=== PATIENT | male | born 1995 | race Caucasian/White ===

== ENCOUNTER 2019-08-24 12:10 | Emergency (ER) | payer SELFPAY ==
[2019-08-24 13:33] VITALS: BP 120/52
--- NOTE | 2019-08-24 13:38 | ER Document Report ---
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 He states he ate some [place] food that night and shortly after began vomiting. States that he has had some constipation but no diarrhea. He admits to ongoing vomiting throughout the next couple days. He did have some dry heaving this morning but states he was able to keep down some dry cereal. He denies any specific abdominal pain or fevers. No chills or night sweats. Denies any recent travel or known sick contacts. States he just generally feels weak. I have treated and performed a rapid initial assessment of this patient. A comprehensive ED assessment and evaluation of the patient, analysis of test results and completion of medical decision making process will be conducted by additional ED providers. PHYSICAL EXAMINATION: GENERAL: Well-appearing, well-nourished and in no acute distress. A&Ox4. Answers questions appropriately. Abdomen: Nontender - Related Data Allergies/Adverse Reactions: No Known Allergies Allergy (Unverified 08/24/19 13:33) Physical Exam - Vital signs Vitals: Temp Pulse Resp BP Pulse Ox 98.0 F 67 16 120/52 L 99 08/24/19 13:32 08/24/19 13:32 08/24/19 13:32 08/24/19 13:32 08/24/19 13:32 Course - Vital Signs Vital signs: Temp Pulse Resp BP Pulse Ox 98.0 F 67 16 120/52 L 99 08/24/19 13:32 08/24/19 13:32 08/24/19 13:32 08/24/19 13:32 08/24/19 13:32
[2019-08-24] MEDS ORDERED: ONDANSETRON HCL INJ/PF 4 MG/2 ML SDV IV ONE (13:39)
[2019-08-24] MEDS ORDERED: NORMAL SALINE 1000 ML 1,000 ML IV ONE (13:39)
[2019-08-24 15:06] LABS: APPEARANCE,URINE CLEAR; BILIRUBIN,URINE NEGATIVE (NEGATIVE); COLOR,URINE YELLOW; GLUCOSE, URINE NEGATIVE (NEGATIVE); KETONES,URINE NEGATIVE (NEGATIVE); PROTEIN,URINE NEGATIVE (NEGATIVE); UROBILINOGEN,URINE NEGATIVE mg/dL (<2.0)
[2019-08-24 15:25] LABS: URINE AMPHETAMINES SCREEN NEGATIVE; URINE BARBITURATES SCREEN NEGATIVE; URINE BENZODIAZEPINES SCREEN NEGATIVE; URINE COCAINE SCREEN NEGATIVE; URINE MARIJUANA (THC) SCREEN UNCONFIRMED POSITIVE; URINE METHADONE SCREEN NEGATIVE; URINE PHENCYCLIDINE SCREEN NEGATIVE
== END 2019-08-24 16:00 | disposition left against medical advice (07) ==
LOC: ER 12:10
DX: Z53.21 Procedure and treatment not carried out due to patient leaving prior to being seen by health care provider (principal); R10.9 Unspecified abdominal pain; R11.2 Nausea with vomiting, unspecified
CPT/HCPCS: 80307; 81001; 99281